=== PATIENT | female | born 1945 | race Caucasian/White ===

== ENCOUNTER 2016-11-03 08:35 | Day surgery (SDC) | payer MEDICARE ==
[2016-10-28 15:10] LABS: BASOPHILS 0.6 %; BASOPHILS ABSOLUTE 0.04 10/3/uL (0.0-0.16); EOSINOPHILS 2.4 %; EOSINOPHILS ABSOLUTE 0.15 10/3/uL (0.0-0.53); HEMATOCRIT 39.3 % (36.0-48.0); HEMOGLOBIN 13.9 g/dL (12.0-16.0); IMMATURE GRANULOCYTES 0.2 %; IMMATURE GRANULOCYTES ABSOLUTE 0.01 10/3/uL (0.0-0.11); LYMPHOCYTES 41.1 %; LYMPHOCYTES ABSOLUTE 2.62 10/3/uL (0.67-4.30); MEAN CORPUS HGB CONC 35.4 g/dL (32.0-36.0); MEAN CORPUSCULAR HEMOGLOB 30.8 pg (26.0-34.0); MONOCYTES 6.4 %; MONOCYTES ABSOLUTE 0.41 10/3/uL (0.21-1.20); NEUTROPHILS 49.3 %; NEUTROPHILS ABSOLUTE 3.14 10/3/uL (2.02-8.40); PLATELET COUNT 126 10/3/uL (150-400); RBC DISTRIBUTION WIDTH 13.6 % (12.0-16.0); RED CELL COUNT 4.52 10/6/uL (4.0-5.6); WHITE BLOOD CELLS 6.4 10/3/uL (4.5-10.5)
[2016-10-28 15:14] LABS: MEAN CORPUSCULAR VOLUME 86.9 fL (80-100)
[2016-10-28 15:15] LABS: MANUAL DIFF NO %
[2016-10-28 15:27] LABS: A/G RATIO 1.1 (0.7-1.9); ALBUMIN 3.5 G/DL (3.5-5.0); ALKALINE PHOSPHATASE 97 U/L (45-117); BUN (BLOOD UREA NITROGEN) 10 MG/DL (6-23); CALCIUM, SERUM 8.5 MG/DL (8.5-10.4); CHLORIDE, SERUM 105 MMOL/L (96-112); CO2 (CARBON DIOXIDE) 30 MMOL/L (24-34); CREATININE 1.04 MG/DL (0.55-1.02); GFR AFRICAN AMERICAN 63 ML/MIN (>=60); GFR NON AFRICAN AMERICAN 55 ML/MIN (>=60); GLOBULIN 3.1 G/DL (2.5-4.1); GLUCOSE, SERUM 202 MG/DL (60-99); POTASSIUM, SERUM 3.3 MMOL/L (3.5-5.3); SGOT(AST) 38 U/L (5-40); SGPT(ALT) 45 U/L (5-65); SODIUM, SERUM 140 MMOL/L (135-148); TOTAL BILIRUBIN 0.6 MG/DL (0-1.2); TOTAL PROTEIN 6.6 G/DL (6.0-8.5)
--- NOTE | ~2016-11-03 | PREOPHP ---
PreOp History and Physical [address] [place] [address] NAME: ELE BALL : 47 STATUS : PRE [facility] [place] PAT#: [id number] AGE: 70 ADM/REG DATE : MR#: [id number] REPORT SERV DATE: 11/03/16 DICTATED BY: JACOB HUA III DATE: 10/19/16 REPORT STATUS : Draft TRANSCRIBED BY: MODHiren DATE: 10/19/16 HISTORY OF PRESENT ILLNESS: This 70-year-old female comes to the operating room for laparoscopic cholecystectomy, possible laparotomy, for symptomatic cholelithiasis and cholecystitis. The patient complains of intermittent episodes of upper abdominal pain. This pain is worse after eating and it is associated with nausea. The patient has gallstones and felt to have symptomatic cholelithiasis and cholecystitis. She comes to the operating room now for laparoscopic cholecystectomy, possible laparotomy. PAST MEDICAL HISTORY: 1. Hypertension. 2. Coronary artery disease. 3. Hyperlipidemia. 4. Diabetes mellitus. 5. Arthritis. 6. Gastroesophageal reflux disease. 7. Anemia. 8. 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 PAST SURGICAL HISTORY: Includes coronary artery stent placement, right hip replacement, and back surgery. FAMILY HISTORY: Positive for gastric cancer, colon cancer, diabetes, and heart disease. MEDICATIONS: Bystolic, irbesartan, aspirin, tramadol, lorazepam, Zantac, insulin. ALLERGIES: NONE. SOCIAL HISTORY: The patient has history of tobacco use. No history of alcohol use. REVIEW OF SYSTEMS: The patient complains of chest pain, back pain, and joint pain. A 14-point review of system is otherwise unremarkable. OBJECTIVE PHYSICAL EXAM: GENERAL: This is a female, in no acute distress. She is alert and oriented x3. HEENT: Unremarkable. Cranial nerves II through XII are normal. LUNGS: Clear. CARDIAC: Normal. ABDOMEN: Soft and tender without masses. EXTREMITIES: Normal without edema. LABORATORY DATA: CT scan of the abdomen and pelvis confirms gallstones. ASSESSMENT: A 70-year-old female with: PreOp History and Physical [address] [place]. [address] NAME: LEE BALL : 47 STATUS : [place] [facility] [place] PAT#: [id number] AGE: 70 ADM/REG DATE : MR#: [id number] REPORT SERV DATE: 11/03/16 DICTATED BY: JACOB HUA III DATE: 10/19/16 REPORT STATUS : Draft TRANSCRIBED BY: ORION DATE: 10/19/16 1. Symptomatic cholelithiasis, cholecystitis, and recurrent episodes of biliary colic. 2. Coronary artery disease. 3. History of myocardial infarction. 4. Hypertension. 5. Hyperlipidemia. 6. Diabetes mellitus. 7. Arthritis. 8. Gastroesophageal reflux disease. PLAN: The patient comes to the operating room now for laparoscopic cholecystectomy, possible laparotomy. This procedure, the risks, benefits, and alternatives, including not limited to the risk for bleeding, infection, common bile duct injury, bile leak, retained common bile stone, enterotomy, injury to any abdominal structure, the definite possible need for laparotomy with possible persistence of her symptoms unrelieved by surgery, possibility of postoperative diarrhea or incisional hernia, and unforeseen complications including deep venous thrombosis, pulmonary embolus, myocardial infarction, stroke, pneumonia, and , have been fully and completely explained to the patient prior to surgery. The fact that this is a major operation with risk for major morbidity and mortality, no guarantee with relief of her symptoms have been explained to her. The expected length of recovery with open laparoscopic procedures has been explained. The patient had questions, which have been answered. She understands the risks and agrees to the surgery as planned. MICHAEL/ORION Jacob Hua III, M.D. / [id number]
--- NOTE | ~2016-11-03 | OP ---
Record Of Operation [facility] [address] [place]. [address] NAME: LEE BALL : 47 STATUS : REG [facility] [place] PAT#: [id number] AGE: 70 ADM/REG DATE : 11/03/16 MR#: [id number] REPORT SERV DATE: 11/03/16 DICTATED BY: JACOB HUA III DATE: 11/03/16 REPORT STATUS : Draft TRANSCRIBED BY: MODHiren DATE: 11/03/16 DATE OF PROCEDURE: 11/03/2016 PREOPERATIVE DIAGNOSIS: Symptomatic cholelithiasis and cholecystitis. POSTOPERATIVE DIAGNOSIS: Symptomatic cholelithiasis and cholecystitis. PROCEDURE: Laparoscopic cholecystectomy. ANESTHESIA: General with intubation. COMPLICATIONS: None. ESTIMATED BLOOD LOSS: Less than 30 mL. SPECIMENS: Gallbladder. DRAINS: None. LAP AND SPONGE COUNT: Correct x3. BRIEF HISTORY: This 70-year-old female presented with evidence for symptomatic cholelithiasis and cholecystitis. It was felt that laparoscopic cholecystectomy, possible laparotomy, was indicated. This procedure, the risks, benefits, and alternatives, including but not limited to the risk for bleeding, infection, common bile duct injury, bile leak, retained common bile stone, enterotomy, injury to any abdominal structure, the definite possible need for laparotomy, possible persistence of her symptoms unrelieved by surgery, possibility of postoperative diarrhea or incisional hernia, and unforeseen complications including deep venous thrombosis, pulmonary embolus, myocardial infarction, stroke, pneumonia, and were fully and completely explained to the patient at length prior to the surgery. The fact that this was a major operation with risk for major morbidity and mortality, and no guarantee for relief of her symptoms was explained to her. The expected length of recovery with open laparoscopic procedures was explained. The patient had questions, which were answered. She fully understood the risks and agreed to the surgery as planned. FINDINGS: The patient's gallbladder ty were thickened, inflamed, and there were adhesions between the gallbladder and omentum consistent chronic cholecystitis. The liver and the remainder of the upper abdomen were otherwise unremarkable as far as we could determine through the laparoscope. DESCRIPTION OF PROCEDURE: After being appropriately identified and after discussing the risks of surgery with the patient and her family in the preoperative area, the patient was taken to the operating room and placed in the supine position on the operating room table. General anesthesia was administered. She was intubated without difficulty. The abdomen was prepped and draped sterilely in the usual fashion. After an appropriate "time-out" per Record Of Operation [facility] [address] [facility] [place]. [address] NAME: LEE BALL : 47 STATUS : REG [facility] [place] PAT#: [id number] AGE: 70 ADM/REG DATE : 11/03/16 MR#: [id number] REPORT SERV DATE: 11/03/16 DICTATED BY: JACOB HUA III DATE: 11/03/16 REPORT STATUS : Draft TRANSCRIBED BY: MODL DATE: 11/03/16 [facility] standards, a small transverse incision was made below the umbilicus. The skin and fascia on either side were elevated with towel clips. A Veress needle was placed through the incision into the peritoneal cavity. Correct position of the needle in the peritoneal cavity was confirmed by the hanging drop test. The abdominal cavity was then insufflated to about 13 mmHg with carbon dioxide. Correct position of air in the peritoneal cavity was confirmed by palpation. The Veress needle was removed and replaced with 10 mm trocar. The laparoscope was placed through this. The patient was placed in the reverse Trendelenburg position and to her left. A second 10 mm trocar was placed just below the xiphoid process, to the right of the falciform ligament, under direct vision with the laparoscope. Two 5 mm trocars were placed along the right subcostal margin, one in the midaxillary line, the other in the midclavicular line. These were also placed under direct vision with the laparoscope. The upper abdomen was inspected. The gallbladder appeared to be chronically diseased. The gallbladder ty were thickened and inflamed consistent chronic cholecystitis. The liver and remainder of the upper abdomen were otherwise unremarkable as far as we could determine through the laparoscope. The appropriate instruments were placed through the trocars. The gallbladder was grasped and the infundibulum of the gallbladder was retracted laterally and inferiorly so as to expose the triangle of Calot. Using careful sharp and blunt dissection, the cystic duct was carefully and meticulously defined proximally and distally. The cystic duct was fairly long. The junction of the cystic duct with the common bile duct was appreciated, but not skeletonized. The cystic artery was similarly defined proximally and distally. The fibrous and fatty tissue between these structures was divided so as to clearly identify the critical angle. Once these structures were clearly defined, the cystic duct was clipped using two clips on the common bile duct side and one on the gallbladder side, all placed as close to the gallbladder as possible, taking care not encroach upon or injure the common bile duct in any way. The cystic duct was then divided between these clips as close to the gallbladder as possible. We elected not to perform a cholangiogram because there was no preoperative or intraoperative evidence for biliary dilatation and because the patient's preoperative liver enzymes were normal and because her biliary anatomy was clearly defined. Again, the structure was not divided or clipped until the critical angle and triangle of Calot had been clearly identified. The cystic artery was then similarly clipped and divided as close to the gallbladder as possible. Using the spatula and the cautery, the gallbladder was carefully dissected from the liver bed. This went very well. Before the gallbladder was completely removed, the gallbladder bed and portal areas were irrigated numerous times with saline. The saline was aspirated dry. This process was repeated several times until hemostasis was meticulously and thoroughly assured in all areas. It was also assured that the clips in the portal areas were in good position and there was no extravasation of bile from any accessory bile duct. Once this was assured, the gallbladder was completely dissected away from the liver and placed in the Endopouch. The liver bed was elevated, irrigated, and inspected for meticulous and thorough hemostasis and for absence of any biliary extravasation and to be certain that the clips were in good position. Once this was assured, the gallbladder and Endopouch were brought out through the infraumbilical incision and placed in the laparoscope through the subxiphoid port. The fascia of the infraumbilical incision was closed with 0 Vicryl suture. The lateral two trocars were removed. These two lower trocar sites were inspected on the underside for hemostasis with the laparoscope. Once this was assured, the subxiphoid trocar was removed under direct vision with the laparoscope to assure hemostasis in this incision. The air was removed from the peritoneal cavity through this incision. The skin incisions were inspected Record Of Operation [facility] [id number] [facility] [place]. [address] NAME: LEE BALL : 47 STATUS : REG [facility] [place] PAT#: [id number] AGE: 70 ADM/REG DATE : 11/03/16 MR#: [id number] REPORT SERV DATE: 11/03/16 DICTATED BY: JACOB HUA III DATE: 11/03/16 REPORT STATUS : Draft TRANSCRIBED BY: ORION DATE: 11/03/16 for hemostasis, they were closed with running subcuticular 4-0 Monocryl stitches. They were injected with one-half percent Marcaine. Dressings were applied. Anesthesia was reversed and the patient was taken to the recovery room in stable condition. The patient tolerated the procedure well. Her family was informed of the results of surgery. The patient will be discharged later when she is stable, comfortable and tolerating liquids and able to void and ambulate. Her family was advised that she should remain on a liquid diet today and advance this as tolerated to a regular diet tomorrow. She should keep wounds clean and dry for 48 hours and that she should not drive for 3 to 4 days after surgery or while using narcotics or Phenergan. They were advised that she should resume her usual medications. She was given a prescription for a narcotic and Phenergan, which she was advised to not take while driving. She was asked to return to the office in two weeks for followup or sooner for nausea, vomiting, fever, chills, wound drainage, abdominal pain, weakness, or other problems prior to that time. It should be noted the patient and family were advised that she should monitor glucose particularly carefully for the next several days. MICHAEL/ORION Jacob Hua III, M.D. / [id number] CC: Marcus Campbell III, M.D.
[~2016-11-03 08:35] MED LIST: ASAB PO; ASAEC PO; ATV1 PO; AVALIDE1 TA1 PO; BYSTOLIC10 MG PO; IBU400 PO; LEVEMFLXPN SC; LIPITOR40 PO; PRILO PO; REFRESH OPH SO0.3 ML OPH; ULTRACET PO; ULTRAM50 PO; VISINE-A EYE AL15 ML OP; ZOCOR20 PO
[2016-11-03 15:29] LABS: HEMATOCRIT 36.5 % (36.0-48.0); HEMOGLOBIN 12.9 g/dL (12.0-16.0)
== END 2016-11-03 15:52 | disposition home or self-care (01) ==
LOC: SDC 08:35
PROVIDERS: Surgery
PROC: 0FT44ZZ Resection of Gallbladder, Percutaneous Endoscopic Approach (ICD-10-PCS; principal; 2016-11-03 10:15)
DX: K80.10 Calculus of gallbladder with chronic cholecystitis without obstruction (principal); I10 Essential (primary) hypertension; E78.00 Pure hypercholesterolemia, unspecified; Z87.891 Personal history of nicotine dependence; H91.90 Unspecified hearing loss, unspecified ear; M19.90 Unspecified osteoarthritis, unspecified site; K21.9 Gastro-esophageal reflux disease without esophagitis; F41.9 Anxiety disorder, unspecified; D64.9 Anemia, unspecified; I25.10 Atherosclerotic heart disease of native coronary artery without angina pectoris; I25.2 Old myocardial infarction; Z95.5 Presence of coronary angioplasty implant and graft; Z88.8 Allergy status to other drugs, medicaments and biological substances; Z79.891 Long term (current) use of opiate analgesic; Z79.82 Long term (current) use of aspirin; Z79.4 Long term (current) use of insulin; Z79.899 Other long term (current) drug therapy
CPT/HCPCS: 71020; 80053; 82962; 85014; 85018; 85025; 88304; 93005; A9270-GY; J0690; J1170; J2175; J2250; J2270; J2405; J2710; J3010